=== PATIENT | female | born 1955 | race Caucasian/White ===

== ENCOUNTER 2022-07-24 11:13 | Emergency (ER) | payer BC, SELFPAY ==
[2022-07-24 11:25] VITALS: BP 159/78; PULSE 85; RESP 18; TEMP 37.1; O2SAT 96; BMI 25.9
[2022-07-24 11:32] VITALS: BP 159/78; PULSE 85; RESP 18; TEMP 37.1; O2SAT 96
== END 2022-07-24 11:40 | disposition home or self-care (01) ==
LOC: UTC 11:18
PROVIDERS: Emergency Provider Nurse Practitioner; PCP Nurse Practitioner Family
DX: Z23 Encounter for immunization (principal)
CPT/HCPCS: 90471; 90715; 99212; G0463

== ENCOUNTER 2023-11-14 17:00 | Outpatient (CLI) | payer BC, SELFPAY | END 2023-11-14 23:59 | disposition home or self-care (01) | LOC: LAB.DROPOF 17:00 | PROVIDERS: PCP Nurse Practitioner Family; Visit Provider Nurse Practitioner Family | DX: M54.50 Low back pain, unspecified (principal) | CPT/HCPCS: 87086 ==